=== PATIENT | male | born 1975 | race Caucasian/White ===

== ENCOUNTER 2024-05-07 23:44 | Emergency (ER) | payer SELFPAY ==
[~2024-05-07] VITALS: Ht 182.9 cm; Wt 98.0 kg
[2024-05-07 23:49] VITALS: PULSE 101; RESP 18; TEMP 98.4
[2024-05-08 00:24] VITALS: BP 141/83; PULSE 101; RESP 18; TEMP 98.4; O2SAT 100
== END 2024-05-08 00:24 | disposition home or self-care (01) ==
LOC: FSED 05-08 00:11
DX: S91.301A Unspecified open wound, right foot, initial encounter (principal); I10 Essential (primary) hypertension; E11.9 Type 2 diabetes mellitus without complications
CPT/HCPCS: 99282

== ENCOUNTER 2024-10-11 23:10 | Inpatient (IN) | payer SELFPAY ==
[~2024-10-11] VITALS: Ht 182.9 cm; Wt 98.7 kg
[2024-10-12] VITALS (10 sets, daily range): BP systolic 125–176; BP diastolic 65–91; PULSE 86–98; RESP 16–18; TEMP 97.7–99; O2SAT 97–100
[2024-10-12] MEDS: Morphine 4mg INJECTION 4 MG/ML INJ IV PRN (00:18)
[2024-10-12] MEDS: ONDANSETRON HCL INJ 2MG/ML 2ML 2 MG/ML VIAL IV PRN (00:19)
[2024-10-12] MEDS: Vancomycin IV 1 GM in SODIUM CHLORIDE 0.9% 250ML 250 ML IV ONE (00:19)
[2024-10-12] MEDS: INSULIN REGULAR, HUMAN 100 UNIT/1 ML SQ ONE (01:17)
[2024-10-12] MEDS: SODIUM CHLORIDE 0.9% 1000ML 1,000 ML IV ONE (01:19)
[2024-10-12] MEDS: SODIUM CHLORIDE 0.9% 1000ML 1,000 ML IV SCH (03:37)
[2024-10-12] MEDS ORDERED: BENZONATATE200 MG PO (07:10)
[2024-10-12] MEDS ORDERED: DEXTROSE 50% SYRINGE 50 ML IV PRN (10:30)
[2024-10-12] MEDS ORDERED: INSULIN GLARGINE 100 UNITS/ML VIAL SQ SCH (10:30)
[2024-10-12] MEDS: INSULIN REGULAR, HUMAN 100 UNIT/1 ML SQ SCH (11:27)
[2024-10-12] MEDS: INSULIN GLARGINE 100 UNITS/ML VIAL SQ ONE (11:28)
[2024-10-13] VITALS (9 sets, daily range): BP systolic 141–176; BP diastolic 74–90; PULSE 88–98; RESP 18–20; TEMP 97.7–99.3; O2SAT 96–100
[2024-10-13] MEDS: Vancomycin IV 1 GM in SODIUM CHLORIDE 0.9% 250ML 250 ML IV SCH (00:10)
[2024-10-13 05:45] LABS: BASOPHILS % 0.2 % (0.0-1.0); EOSINOPHILS # (AUTO) 0.1 (0.0-0.4); HEMOGLOBIN 9.2 g/dL (14.0-18.0); LYMPHOCYTES % 15.1 % (18.0-39.1); MEAN CORPUSCULAR HEMOGLOBIN 28.6 pg (28-32); MEAN CORPUSCULAR HGB CONC 34.1 g/dL (31-35); MEAN CORPUSCULAR VOLUME 83.9 fL (81-99); MONOCYTES # (AUTO) 0.9 (0.2-0.8); MONOCYTES % 6.7 % (4.4-11.3); NEUTROPHILS % 75.3 % (38.7-80.0); PLATELET COUNT 324 x10e3/uL (140-360); RED BLOOD COUNT 3.22 x10e6/uL (4.3-5.7); RED CELL DISTRIBUTION WIDTH 12.4 % (11.7-14.4); WHITE BLOOD COUNT 13.21 x10e3/uL (4.8-10.8)
[2024-10-13 06:13] LABS: ANION GAP 11.8 mmol/L (8-16); CALCIUM 7.8 mg/dL (8.4-10.2); CREATININE, SERUM 1.29 mg/dL (0.72-1.25)
[2024-10-13 06:17] LABS: POTASSIUM 2.8 mmol/L (3.5-5.1)
[2024-10-13] MEDS: LOSARTAN POTASSIUM 25 MG TAB PO SCH (07:43)
[2024-10-13] MEDS ORDERED: POTASSIUM PHOSPHATE 15 MM in SODIUM CHLORIDE 0.9% 250ML 250 ML IV SCH (12:45)
[2024-10-13] MEDS: MAGNESIUM SULFATE 2GM/50ML 50 ML IV ONE (13:29)
[2024-10-13] MEDS: POTASSIUM CHLORIDE 10MEQ EA PO SCH (15:31)
[2024-10-13] MEDS: POTASSIUM CHLORIDE 10MEQ EA PO ONE (22:01)
[2024-10-14] VITALS (7 sets, daily range): BP systolic 149–173; BP diastolic 77–89; PULSE 56–97; RESP 18–20; TEMP 97.4–98.9; O2SAT 99–100
[2024-10-14 06:55] LABS: BASOPHILS % 0.4 % (0.0-1.0); EOSINOPHILS # (AUTO) 0.2 (0.0-0.4); HEMATOCRIT 28.1 % (38.2-49.6); HEMOGLOBIN 9.4 g/dL (14.0-18.0); LYMPHOCYTES # (AUTO) 1.6 (1.0-3.2); LYMPHOCYTES % 13.9 % (18.0-39.1); MEAN CORPUSCULAR HEMOGLOBIN 28.1 pg (28-32); MEAN CORPUSCULAR HGB CONC 33.5 g/dL (31-35); MEAN CORPUSCULAR VOLUME 83.9 fL (81-99); MONOCYTES # (AUTO) 0.7 (0.2-0.8); MONOCYTES % 6.6 % (4.4-11.3); NEUTROPHILS # (AUTO) 8.6 (2.1-6.9); NEUTROPHILS % 76.5 % (38.7-80.0); PLATELET COUNT 356 x10e3/uL (140-360); RED BLOOD COUNT 3.35 x10e6/uL (4.3-5.7); RED CELL DISTRIBUTION WIDTH 12.4 % (11.7-14.4); WHITE BLOOD COUNT 11.26 x10e3/uL (4.8-10.8)
[2024-10-14 07:09] LABS: ALBUMIN 1.6 g/dL (3.5-5.0); ALBUMIN/GLOBULIN RATIO 0.3 (0.8-2.0); ANION GAP 11.3 mmol/L (8-16); BILIRUBIN,TOTAL 0.2 mg/dL (0.2-1.2); CALCIUM 7.7 mg/dL (8.4-10.2); CREATININE, SERUM 1.08 mg/dL (0.72-1.25); MAGNESIUM 1.7 MG/DL (1.3-2.1); PHOSPHORUS 1.9 MG/DL (2.3-4.7)
[2024-10-14 07:11] LABS: POTASSIUM 3.3 mmol/L (3.5-5.1)
[2024-10-14 07:11] LABS: CHOL/HDL RATIO 4.5 (3.9-4.7)
[2024-10-14] MEDS ORDERED: MAGNESIUM SULF 1GRAM/DEXTROSE 100 ML IV ONE (08:30)
[2024-10-14] MEDS: CHOLESTYRAMINE 4 GM PACKET PO SCH (09:00)
[2024-10-14] MEDS: MAGNESIUM SULF 1GRAM/DEXTROSE 100 ML IV ONE (10:04)
[2024-10-14] MEDS ORDERED: POTASSIUM PHOSPHATE 15 MM in SODIUM CHLORIDE 0.9% 250ML 250 ML IV ONE (11:15)
[2024-10-14] MEDS: POTASSIUM CHLORIDE 10MEQ EA PO ONE (11:19)
[2024-10-14] MEDS: SODIUM PHOSPHATE 15 MMOL in SODIUM CHLORIDE 0.9% 250ML 250 ML IV ONE (11:22)
[2024-10-14] MEDS: ATORVASTATIN 40 MG TAB PO SCH (21:03)
[2024-10-14] MEDS: CHOLESTYRAMINE 4 GM PACKET PO PRN (22:12)
[2024-10-14] MEDS: INSULIN GLARGINE 100 UNITS/ML VIAL SQ SCH (22:19)
[2024-10-15] VITALS (7 sets, daily range): BP systolic 151–166; BP diastolic 82–88; PULSE 87–97; RESP 18–20; TEMP 97.9–99.9; O2SAT 99–100
[2024-10-15] MEDS: INSULIN REGULAR, HUMAN 100 UNIT/1 ML SQ SCH (12:03)
[2024-10-15] MEDS: INSULIN GLARGINE 100 UNITS/ML VIAL SQ SCH (21:16)
[2024-10-16] VITALS (7 sets, daily range): BP systolic 145–175; BP diastolic 75–92; PULSE 90–112; RESP 18–20; TEMP 97–99.3; O2SAT 98–100
[2024-10-16 05:36] LABS: BASOPHILS # (AUTO) 0.1 (0.0-0.1); BASOPHILS % 0.4 % (0.0-1.0); EOSINOPHILS # (AUTO) 0.3 (0.0-0.4); EOSINOPHILS % 2.9 % (0.0-6.0); HEMATOCRIT 29.9 % (38.2-49.6); LYMPHOCYTES # (AUTO) 1.9 (1.0-3.2); LYMPHOCYTES % 16.1 % (18.0-39.1); MEAN CORPUSCULAR HEMOGLOBIN 28.6 pg (28-32); MEAN CORPUSCULAR HGB CONC 33.4 g/dL (31-35); MEAN CORPUSCULAR VOLUME 85.4 fL (81-99); MONOCYTES # (AUTO) 0.7 (0.2-0.8); MONOCYTES % 5.7 % (4.4-11.3); NEUTROPHILS # (AUTO) 8.6 (2.1-6.9); PLATELET COUNT 428 x10e3/uL (140-360); RED CELL DISTRIBUTION WIDTH 12.4 % (11.7-14.4); WHITE BLOOD COUNT 11.58 x10e3/uL (4.8-10.8)
[2024-10-16 06:18] LABS: ANION GAP 10.7 mmol/L (8-16); CALCIUM 7.9 mg/dL (8.4-10.2); CREATININE, SERUM 1.12 mg/dL (0.72-1.25); MAGNESIUM 1.5 MG/DL (1.3-2.1); PHOSPHORUS 2.6 MG/DL (2.3-4.7)
[2024-10-16 06:24] LABS: POTASSIUM 2.7 mmol/L (3.5-5.1)
[2024-10-16] MEDS: MAGNESIUM SULFATE 2GM/50ML 50 ML IV ONE (07:56)
[2024-10-16] MEDS: MAGNESIUM SULF 1GRAM/DEXTROSE 100 ML IV ONE (10:08)
[2024-10-16] MEDS: POTASSIUM CHLORIDE 20MEQ/100ML 100 ML IV SCH (12:09)
[2024-10-17 00:47] VITALS: BP 155/84; PULSE 110; RESP 18; TEMP 100.2; O2SAT 100
[2024-10-17 04:36] VITALS: BP 150/67; PULSE 91; RESP 18; TEMP 99; O2SAT 98
[2024-10-17 07:58] LABS: BASOPHILS # (AUTO) 0.1 (0.0-0.1); BASOPHILS % 0.5 % (0.0-1.0); EOSINOPHILS # (AUTO) 0.3 (0.0-0.4); EOSINOPHILS % 2.4 % (0.0-6.0); HEMATOCRIT 27.4 % (38.2-49.6); HEMOGLOBIN 9.3 g/dL (14.0-18.0); LYMPHOCYTES # (AUTO) 1.6 (1.0-3.2); LYMPHOCYTES % 15.2 % (18.0-39.1); MEAN CORPUSCULAR HEMOGLOBIN 29.2 pg (28-32); MEAN CORPUSCULAR HGB CONC 33.9 g/dL (31-35); MEAN CORPUSCULAR VOLUME 85.9 fL (81-99); MONOCYTES # (AUTO) 0.7 (0.2-0.8); MONOCYTES % 6.2 % (4.4-11.3); NEUTROPHILS % 75.1 % (38.7-80.0); PLATELET COUNT 421 x10e3/uL (140-360); RED BLOOD COUNT 3.19 x10e6/uL (4.3-5.7); RED CELL DISTRIBUTION WIDTH 12.4 % (11.7-14.4)
[2024-10-17 08:17] VITALS: BP 172/84; PULSE 90; RESP 18; TEMP 98.3; O2SAT 100
[2024-10-17 08:21] LABS: ALBUMIN 1.7 g/dL (3.5-5.0); ALBUMIN/GLOBULIN RATIO 0.3 (0.8-2.0); ANION GAP 11.8 mmol/L (8-16); BILIRUBIN,TOTAL 0.3 mg/dL (0.2-1.2); CALCIUM 7.5 mg/dL (8.4-10.2); CREATININE, SERUM 1.03 mg/dL (0.72-1.25); TOTAL PROTEIN 7.4 g/dL (6.5-8.1)
[2024-10-17 08:27] LABS: POTASSIUM 2.8 mmol/L (3.5-5.1)
[2024-10-17] MEDS: MAGNESIUM SULF 1GRAM/DEXTROSE 100 ML IV ONE (11:54)
[2024-10-17 12:59] VITALS: BP 172/84; PULSE 98; RESP 18; TEMP 98.1; O2SAT 98
[2024-10-17] MEDS: POTASSIUM CHLORIDE 20MEQ/100ML 100 ML IV ONE (14:26)
[2024-10-17] MEDS: Vancomycin IV 1 GM in SODIUM CHLORIDE 0.9% 250ML 250 ML IV SCH (14:28)
[2024-10-17 15:59] VITALS: BP 161/80; PULSE 89; RESP 18; TEMP 98.2; O2SAT 100
[2024-10-17] MEDS: POTASSIUM CHLORIDE 10MEQ EA PO ONE ×2 (16:44→21:28)
[2024-10-17] MEDS: BENZONATATE 100 MG CAP PO PRN (18:09)
[2024-10-17 20:00] VITALS: BP 161/80; PULSE 87; RESP 18; TEMP 98.6; O2SAT 98
[2024-10-18] VITALS (11 sets, daily range): BP systolic 141–183; BP diastolic 82–93; PULSE 93–107; RESP 10–20; TEMP 97.4–99.7; O2SAT 97–100
[2024-10-18] MEDS: POTASSIUM CHLORIDE 10MEQ EA PO ONE (00:12)
[2024-10-18 05:45] LABS: BASOPHILS % 0.4 % (0.0-1.0); EOSINOPHILS # (AUTO) 0.3 (0.0-0.4); EOSINOPHILS % 2.8 % (0.0-6.0); HEMATOCRIT 26.2 % (38.2-49.6); HEMOGLOBIN 8.7 g/dL (14.0-18.0); LYMPHOCYTES # (AUTO) 1.5 (1.0-3.2); LYMPHOCYTES % 13.8 % (18.0-39.1); MEAN CORPUSCULAR HEMOGLOBIN 28.4 pg (28-32); MEAN CORPUSCULAR HGB CONC 33.2 g/dL (31-35); MEAN CORPUSCULAR VOLUME 85.6 fL (81-99); MONOCYTES # (AUTO) 0.6 (0.2-0.8); NEUTROPHILS # (AUTO) 8.1 (2.1-6.9); NEUTROPHILS % 76.4 % (38.7-80.0); PLATELET COUNT 434 x10e3/uL (140-360); RED BLOOD COUNT 3.06 x10e6/uL (4.3-5.7); RED CELL DISTRIBUTION WIDTH 12.7 % (11.7-14.4)
[2024-10-18 06:11] LABS: ALBUMIN 1.7 g/dL (3.5-5.0); ALBUMIN/GLOBULIN RATIO 0.3 (0.8-2.0); ANION GAP 10.5 mmol/L (8-16); CALCIUM 7.3 mg/dL (8.4-10.2); CREATININE, SERUM 1.05 mg/dL (0.72-1.25); POTASSIUM 3.5 mmol/L (3.5-5.1); TOTAL PROTEIN 7.3 g/dL (6.5-8.1)
[2024-10-18 06:25] LABS: BILIRUBIN,TOTAL 0.2 mg/dL (0.2-1.2)
[2024-10-18 06:31] LABS: MAGNESIUM 1.6 MG/DL (1.3-2.1)
[2024-10-18] MEDS: MULTIVITAMINS/MINERALS TAB PO SCH (08:47)
[2024-10-18] MEDS: MAGNESIUM OXIDE 400 MG TAB PO SCH (08:47)
[2024-10-18] MEDS: CALCIUM CARBONATE/VITAMIN D3 500 MG TAB PO SCH (08:47)
[2024-10-18] MEDS: ASCORBIC ACID 500 MG TAB PO SCH (08:48)
[2024-10-18] MEDS: ZINC SULFATE 50 MG CAP PO SCH (08:48)
[2024-10-18] MEDS: MAGNESIUM SULFATE 2GM/50ML 50 ML IV ONE (08:54)
[2024-10-18] MEDS: SODIUM PHOSPHATE 15 MMOL in SODIUM CHLORIDE 0.9% 250ML 250 ML IV ONE (09:49)
[2024-10-18] MEDS: MAGNESIUM SULF 1GRAM/DEXTROSE 100 ML IV ONE (10:50)
[2024-10-18] MEDS ORDERED: FENTANYL CITRATE/PF 100MCG/2 ML INJ ONE (13:10)
[2024-10-18] MEDS ORDERED: LIDOCAINE HCL 2% LOCAL INJ 5 ML SDV VIAL INJ ONE (13:10)
[2024-10-18] MEDS ORDERED: PROPOFOL IV EMULSION 10 MG/ML 20 ML VIAL ONE ×2 (13:10→14:33)
[2024-10-18] MEDS ORDERED: ONDANSETRON HCL INJ 2MG/ML 2ML 2 MG/ML VIAL ONE ×2 (13:35→15:38)
[2024-10-18] MEDS ORDERED: FAMOTIDINE 20 MG/2 ML VIAL IV ONE (13:35)
[2024-10-18] MEDS ORDERED: METOCLOPRAMIDE HCL 10 MG/2ML VIAL ONE (13:35)
[2024-10-18] MEDS ORDERED: PHENYLEPHRINE HCL 1% 10 MG/ML VIAL ONE (13:47)
[2024-10-18] MEDS ORDERED: GLYCOPYRROLATE INJ 0.2 MG/ML VIAL ONE (14:12)
[2024-10-18] MEDS ORDERED: KETAMINE 50MG/5ML SYR ONE (14:12)
[2024-10-18] MEDS ORDERED: ACETAMINOPHEN 1000 MG/100 ML 100 ML IV ONE (14:13)
[2024-10-18] MEDS ORDERED: HYDROMORPHONE 2MG/ML ONE (14:32)
[2024-10-18] MEDS ORDERED: DEXMEDETOMIDINE HCL 2 ML ONE (14:34)
[2024-10-18] MEDS ORDERED: EPHEDRINE SULFATE INJ 50 MG/ML VIAL ONE (14:36)
[2024-10-18] MEDS ORDERED: DEXAMETHASONE SOD PHOS INJ 4 MG/ML SDV ONE (14:38)
[2024-10-18] MEDS ORDERED: ACETAMINOPHEN 1000 MG/100 ML IV PRN (15:45)
[2024-10-18] MEDS: FENTANYL CITRATE/PF 100MCG/2 ML INJ ONE (16:15)
[2024-10-18] MEDS: HYDROMORPHONE 1MG/1ML INJ ONE (16:45)
[2024-10-18] MEDS: INSULIN GLARGINE 100 UNITS/ML VIAL SQ SCH (21:16)
[2024-10-18] MEDS: HYDROCODONE/APAP 7.5MG-325MG 1 EA TAB PO PRN (22:32)
[2024-10-19] VITALS (8 sets, daily range): BP systolic 125–156; BP diastolic 71–92; PULSE 74–95; RESP 18–20; TEMP 97.6–98.8; O2SAT 96–100
[2024-10-19 05:16] LABS: BASOPHILS % 0.2 % (0.0-1.0); EOSINOPHILS % 0.1 % (0.0-6.0); HEMATOCRIT 27.2 % (38.2-49.6); HEMOGLOBIN 8.8 g/dL (14.0-18.0); LYMPHOCYTES # (AUTO) 0.9 (1.0-3.2); LYMPHOCYTES % 7.3 % (18.0-39.1); MEAN CORPUSCULAR HEMOGLOBIN 28.3 pg (28-32); MEAN CORPUSCULAR HGB CONC 32.4 g/dL (31-35); MEAN CORPUSCULAR VOLUME 87.5 fL (81-99); MONOCYTES # (AUTO) 0.6 (0.2-0.8); MONOCYTES % 4.5 % (4.4-11.3); NEUTROPHILS # (AUTO) 10.8 (2.1-6.9); NEUTROPHILS % 87.3 % (38.7-80.0); PLATELET COUNT 468 x10e3/uL (140-360); RED BLOOD COUNT 3.11 x10e6/uL (4.3-5.7); RED CELL DISTRIBUTION WIDTH 12.5 % (11.7-14.4); WHITE BLOOD COUNT 12.37 x10e3/uL (4.8-10.8)
[2024-10-19 05:48] LABS: ALBUMIN 1.7 g/dL (3.5-5.0); ALBUMIN/GLOBULIN RATIO 0.3 (0.8-2.0); ANION GAP 13.4 mmol/L (8-16); BILIRUBIN,TOTAL 0.2 mg/dL (0.2-1.2); CALCIUM 7.2 mg/dL (8.4-10.2); CREATININE, SERUM 1.22 mg/dL (0.72-1.25); MAGNESIUM 1.7 MG/DL (1.3-2.1); PHOSPHORUS 3.7 MG/DL (2.3-4.7); POTASSIUM 4.4 mmol/L (3.5-5.1); TOTAL PROTEIN 7.3 g/dL (6.5-8.1)
[2024-10-20] VITALS (8 sets, daily range): BP systolic 125–147; BP diastolic 69–83; PULSE 76–88; RESP 17–20; TEMP 97.3–98.2; O2SAT 98–100
[2024-10-20] MEDS ORDERED: CEPACOL SORE THROAT LOZENGES PO PRN (04:45)
[2024-10-20] MEDS ORDERED: ZOLPIDEM TARTRATE 10 MG TAB PO PRN (21:00)
[2024-10-21] VITALS (8 sets, daily range): BP systolic 133–162; BP diastolic 75–85; PULSE 82–90; RESP 17–19; TEMP 97.7–98.5; O2SAT 99–100
[2024-10-21] MEDS: POLYETHYLENE GLYCOL 3350 17 GM PACK PO ONE (09:05)
[2024-10-21] MEDS: ASPIRIN 81 MG CHEW TAB PO SCH (12:33)
[2024-10-21] MEDS: FUROSEMIDE INJ 10 MG/ML 4 ML VIAL IV ONE (12:33)
[2024-10-21 17:41] LABS: ALBUMIN/GLOBULIN RATIO 0.3 (0.8-2.0); ANION GAP 13.5 mmol/L (8-16); BILIRUBIN,TOTAL 0.2 mg/dL (0.2-1.2); CALCIUM 8.2 mg/dL (8.4-10.2); CREATININE, SERUM 1.11 mg/dL (0.72-1.25); POTASSIUM 4.5 mmol/L (3.5-5.1); TOTAL PROTEIN 7.9 g/dL (6.5-8.1)
[2024-10-21] MEDS: INSULIN GLARGINE 100 UNITS/ML VIAL SQ SCH (21:13)
[2024-10-22] VITALS (8 sets, daily range): BP systolic 125–163; BP diastolic 77–92; PULSE 78–102; RESP 17–18; TEMP 98.1–98.3; O2SAT 94–100
[2024-10-22 06:38] LABS: BASOPHILS # (AUTO) 0.1 (0.0-0.1); BASOPHILS % 0.8 % (0.0-1.0); EOSINOPHILS # (AUTO) 0.2 (0.0-0.4); LYMPHOCYTES # (AUTO) 1.6 (1.0-3.2); LYMPHOCYTES % 18.8 % (18.0-39.1); MEAN CORPUSCULAR HEMOGLOBIN 28.7 pg (28-32); MEAN CORPUSCULAR VOLUME 89.6 fL (81-99); MONOCYTES # (AUTO) 0.5 (0.2-0.8); MONOCYTES % 6.3 % (4.4-11.3); NEUTROPHILS % 71.6 % (38.7-80.0); PLATELET COUNT 472 x10e3/uL (140-360); RED BLOOD COUNT 2.79 x10e6/uL (4.3-5.7); RED CELL DISTRIBUTION WIDTH 12.4 % (11.7-14.4); WHITE BLOOD COUNT 8.36 x10e3/uL (4.8-10.8)
[2024-10-22 07:16] LABS: ALBUMIN 1.8 g/dL (3.5-5.0); ALBUMIN/GLOBULIN RATIO 0.3 (0.8-2.0); ANION GAP 10.5 mmol/L (8-16); BILIRUBIN,TOTAL 0.2 mg/dL (0.2-1.2); CREATININE, SERUM 1.14 mg/dL (0.72-1.25); MAGNESIUM 1.7 MG/DL (1.3-2.1); POTASSIUM 4.5 mmol/L (3.5-5.1); TOTAL PROTEIN 7.2 g/dL (6.5-8.1)
[2024-10-22] MEDS: LOSARTAN POTASSIUM 100 MG TAB PO SCH (08:34)
[2024-10-22] MEDS: ENOXAPARIN SOD INJ 40 MG/0.4 ML SYR SC SCH (08:35)
[2024-10-22] MEDS: INSULIN GLARGINE 100 UNITS/ML VIAL SQ SCH (20:35)
[2024-10-23] VITALS (9 sets, daily range): BP systolic 135–164; BP diastolic 72–93; PULSE 78–91; RESP 18–20; TEMP 97.5–98.4; O2SAT 99–100
[2024-10-23 05:32] LABS: BASOPHILS # (AUTO) 0.1 (0.0-0.1); BASOPHILS % 0.8 % (0.0-1.0); EOSINOPHILS # (AUTO) 0.3 (0.0-0.4); EOSINOPHILS % 3.5 % (0.0-6.0); HEMATOCRIT 27.1 % (38.2-49.6); HEMOGLOBIN 8.6 g/dL (14.0-18.0); LYMPHOCYTES # (AUTO) 1.8 (1.0-3.2); LYMPHOCYTES % 25.1 % (18.0-39.1); MEAN CORPUSCULAR HEMOGLOBIN 27.7 pg (28-32); MEAN CORPUSCULAR HGB CONC 31.7 g/dL (31-35); MEAN CORPUSCULAR VOLUME 87.4 fL (81-99); MONOCYTES # (AUTO) 0.6 (0.2-0.8); MONOCYTES % 7.8 % (4.4-11.3); NEUTROPHILS # (AUTO) 4.4 (2.1-6.9); NEUTROPHILS % 62.5 % (38.7-80.0); PLATELET COUNT 503 x10e3/uL (140-360); RED CELL DISTRIBUTION WIDTH 12.7 % (11.7-14.4); WHITE BLOOD COUNT 7.06 x10e3/uL (4.8-10.8)
[2024-10-23 06:11] LABS: ALBUMIN 1.9 g/dL (3.5-5.0); ALBUMIN/GLOBULIN RATIO 0.3 (0.8-2.0); ANION GAP 12.5 mmol/L (8-16); BILIRUBIN,TOTAL 0.2 mg/dL (0.2-1.2); CALCIUM 8.3 mg/dL (8.4-10.2); CREATININE, SERUM 1.06 mg/dL (0.72-1.25); POTASSIUM 4.5 mmol/L (3.5-5.1); TOTAL PROTEIN 7.4 g/dL (6.5-8.1)
[2024-10-24 03:03] VITALS: BP 139/74; PULSE 82; RESP 20; TEMP 97.8; O2SAT 98
[2024-10-24 08:35] VITALS: BP 154/85; PULSE 84; RESP 17; TEMP 98.7; O2SAT 100
[2024-10-24 09:00] VITALS: BP 123/85; PULSE 84; RESP 20; TEMP 98.7; O2SAT 100
[2024-10-24 11:41] VITALS: BP 124/74; PULSE 86; RESP 18; TEMP 98.7; O2SAT 99
[2024-10-24] MEDS ORDERED: ASPIRIN CHEW81 MG PO (11:57)
[2024-10-24] MEDS ORDERED: LANTUS 3ML100 UNITS/ SC (11:57)
[2024-10-24] MEDS ORDERED: ATORVASTATIN CA40 MG PO (11:57)
[2024-10-24] MEDS ORDERED: DAILY VITAMIN1 EAC2 PO (11:57)
[2024-10-24] MEDS ORDERED: BENZONATATE100 MG PO (11:57)
[2024-10-24] MEDS ORDERED: SORE THROAT LO1 EAC3 PO (11:57)
[2024-10-24] MEDS ORDERED: HUMULIN R100 UNIT/2 SQ (11:57)
[2024-10-24] MEDS ORDERED: ASCORBIC ACID500 MG PO (11:57)
[2024-10-24] MEDS ORDERED: COZAAR100 MG PO (11:57)
[2024-10-24] MEDS ORDERED: CHOLESTYRAMINE L4 GM PO (11:57)
[2024-10-24] MEDS ORDERED: OYSTER SHELL 51 EAC1 PO (11:57)
[2024-10-24] MEDS ORDERED: HYDROCODON-ACE1 EA12 PO (11:57)
[2024-10-24] MEDS ORDERED: ZINC SULFATE50 MG PO (11:57)
[2024-10-24] MEDS ORDERED: ONDANSETRON ODT4 MG PO (11:57)
[2024-10-24] MEDS ORDERED: MAG-OXIDE400 MG PO (11:57)
== END 2024-10-24 19:57 | disposition home or self-care (01) | DRG 239 ==
LOC: FSED 23:23 → ERHOLD 23:41 → MED/SURG2 10-12 03:14 → UNDODISIN 10-23 19:00
PROVIDERS: ADMIT Internal Medicine; ATTEND Internal Medicine
PROC: 0Y6H0Z2 Detachment at Right Lower Leg, Mid, Open Approach (ICD-10-PCS; principal; 2024-10-15)
DX: E11.52 Type 2 diabetes mellitus with diabetic peripheral angiopathy with gangrene (principal); A48.0 Gas gangrene; E87.1 Hypo-osmolality and hyponatremia; M86.171 Other acute osteomyelitis, right ankle and foot; L97.418 Non-pressure chronic ulcer of right heel and midfoot with other specified severity; M00.871 Arthritis due to other bacteria, right ankle and foot; E11.69 Type 2 diabetes mellitus with other specified complication; E11.621 Type 2 diabetes mellitus with foot ulcer; I70.234 Atherosclerosis of native arteries of right leg with ulceration of heel and midfoot; E11.65 Type 2 diabetes mellitus with hyperglycemia; Z79.84 Long term (current) use of oral hypoglycemic drugs; Z79.4 Long term (current) use of insulin; E11.42 Type 2 diabetes mellitus with diabetic polyneuropathy; E87.6 Hypokalemia; R19.7 Diarrhea, unspecified; E86.0 Dehydration; E83.42 Hypomagnesemia; E83.39 Other disorders of phosphorus metabolism; F32.A Depression, unspecified; R11.0 Nausea; D64.9 Anemia, unspecified; Z71.3 Dietary counseling and surveillance; Z68.29 Body mass index [BMI] 29.0-29.9, adult; Z11.52 Encounter for screening for COVID-19; Z91.148 Patient's other noncompliance with medication regimen for other reason; Z59.71 Insufficient health insurance coverage; Z89.421 Acquired absence of other right toe(s); Z79.899 Other long term (current) drug therapy; Z79.82 Long term (current) use of aspirin
CPT/HCPCS: 0223U; 36415; 80048; 80053; 80061; 80076; 80202; 82948; 83036; 83605; 83735; 84100; 85025; 85610; 86140; 87040; 87400; 88304; 88311; 93925; 96372; 96374; 96375; 99252; 99284; J0692; J1100; J1171; J1650; J1815; J1940; J2003; J2270; J2371; J2405; J2765; J3475; J3480; J7030; J7050

== ENCOUNTER 2024-12-17 19:19 | Emergency (ER) | payer OTHER ==
[~2024-12-17] VITALS: Ht 182.9 cm; Wt 94.3 kg
[~2024-12-17 19:19] MED LIST: ASCORBIC ACID500 MG PO; ASPIRIN CHEW81 MG PO; ATORVASTATIN CA40 MG PO; BENZONATATE100 MG PO; BENZONATATE200 MG PO; CHOLESTYRAMINE L4 GM PO; COZAAR100 MG PO; DAILY VITAMIN1 EAC2 PO; HUMULIN R100 UNIT/2 SQ; HYDROCODON-ACE1 EA12 PO; LANTUS 3ML100 UNITS/ SC; MAG-OXIDE400 MG PO; ONDANSETRON ODT4 MG PO; OYSTER SHELL 51 EAC1 PO; SORE THROAT LO1 EAC3 PO; ZINC SULFATE50 MG PO
[2024-12-17 19:25] VITALS: PULSE 101; RESP 19; TEMP 98.7; O2SAT 100
[2024-12-17] MEDS ORDERED: DOXYCYCLINE HY100 MG PO (19:59)
== END 2024-12-17 20:09 | disposition home or self-care (01) ==
LOC: ER 19:38
DX: Z48.01 Encounter for change or removal of surgical wound dressing (principal); Z89.511 Acquired absence of right leg below knee; I10 Essential (primary) hypertension; E11.9 Type 2 diabetes mellitus without complications
CPT/HCPCS: 99283